=== PATIENT | female | born 1995 | race Caucasian/White ===

== ENCOUNTER 2022-03-06 02:38 | Outpatient (CLI) | payer BC, SELFPAY ==
[2022-03-06 09:50] LABS: ALT 23 U/L (14-59); AST 20 U/L (15-37); Albumin 4.3 g/dL (3.4-5.0); Alkaline Phosphatase 91 U/L (46-116); Anion Gap 10.3 mmol/L (3-11); BUN 10 mg/dL (7-18); Bilirubin, Total 0.9 mg/dL (0.2-1.0); CO2 27.7 mmol/L (21.0-32.0); CREATININE 0.6 mg/dL (0.55-1.02); Calcium 9.2 mg/dL (8.5-10.1); Calculated LDL 89 mg/dL (<100); Chloride 102 mmol/L (98-107); Cholesterol 183 mg/dL (<200); Glucose 89 mg/dL (74-106); HDL Cholesterol 77 mg/dL (40-60); Sodium 140 mmol/L (136-145); Total Protein 7.9 g/dL (6.4-8.2); Triglyceride 87 mg/dL (<150)
[2022-03-06 12:35] LABS: Abs Immature Grans 0.01 10^3/uL (0.0-0.06); Absolute Basophil Count 0.05 10^3/uL (0.0-0.2); Absolute Eosinophil Count 0.22 10^3/uL (0.0-0.7); Absolute Lymphocyte Count 1.56 10^3/uL (1.2-3.4); Absolute Monocyte Count 0.63 10^3/uL (0.1-0.8); Absolute Neutrophil Count 3.42 10^3/uL (1.2-6.7); Basophils % 0.8; Eosinophils % 3.7; HCT 38.7 % (36.0-46.0); HGB 13.3 g/dL (11.2-15.7); Immature Grans % 0.2; Lymphocytes % 26.5; MCH 33.4 pg (27.0-33.0); MCHC 34.4 % (32.0-36.0); MCV 97 fL (80-95); MPV 12.7 fL (8.0-11.0); Monocytes % 10.7; Neutrophils % 58.1; Platelet Count 225 10^3/uL (130-400); RBC 3.98 10^6/uL (3.93-5.22); RDW 11.4 % (11.7-14.6); RDW-SD 40.9 fL; WBC 5.89 10^3/uL (4.4-10.8)
[2022-03-06 19:22] LABS: Lab Add On Test DONE
[2022-03-06 20:32] LABS: Folate 16.7 ng/mL (8.6-20.0); Vitamin B12 442 pg/mL (193-986)
== END 2022-03-06 02:39 | disposition home or self-care (01) ==
LOC: LBO 02:38
PROVIDERS: PCP Student in an Organized Health Care Education/Training Program; Referring Provider Student in an Organized Health Care Education/Training Program; Visit Provider Student in an Organized Health Care Education/Training Program
DX: B99.9 Unspecified infectious disease (principal); D89.89 Other specified disorders involving the immune mechanism, not elsewhere classified; L84 Corns and callosities; M77.9 Enthesopathy, unspecified; Z13.220 Encounter for screening for lipoid disorders; E46 Unspecified protein-calorie malnutrition; R71.8 Other abnormality of red blood cells
CPT/HCPCS: 36415; 80053; 80061; 82607; 82746; 85025

== ENCOUNTER → 2022-03-17 00:30 | Outpatient (CLI) | payer BC, SELFPAY ==
--- NOTE | 2022-03-17 06:45 | DI.US_ITS ---
Exam(s) US SOFT TISSUE EXTREMITY EXAM: US SOFT TISSUE EXTREMITY CLINICAL HISTORY: evaluate nodular mass; atypical callous,rt heel pain,m79.671,l84. TECHNIQUE: Ultrasound was performed using standard protocol. COMPARISON: US US PELVIS TRANSVAGINAL from 03/07/2022 FINDINGS: Dedicated ultrasound examination of the right heel/area of concern was performed. Images reveal a relatively hypoechoic (but not typical fluid) appearing area at the area of concern w hich measures approximately 1.3 x 1.4 x 0.5 cm. No distinct ulcer crater demonstrated. Nevertheless, cannot exclude developing abscess. Other possi bility would be for in order extension of callus at this level. IMPRESSION: As above. If clinically indicated further study with MRI can be performed for added specificity. DATA REPOSITORY:
--- NOTE | 2022-03-17 08:42 | DI.RAD_ITS ---
Exam(s) XR FOOT RT COMPLETE EXAM: XR FOOT RT COMPLETE CLINICAL HISTORY: rt heel pain,l84,m79.671,pre ulcerative corn or callous, ? bony pathology. TECHNIQUE: 2D digital imaging was performed. COMPARISON: No exams were available for comparison FINDINGS: 3 views No evidence of fracture or diastasis of the Lisfranc joint. No pes planus. No osseous lesions nor e rosions. No inferior calcaneal spur. No degenerative changes. IMPRESSION: No significant focal osseous findings. DATA REPOSITORY: RADIATION DOSE DELIVERED:
== END ==
PROVIDERS: PCP Student in an Organized Health Care Education/Training Program; Visit Provider Student in an Organized Health Care Education/Training Program
DX: L84 Corns and callosities (principal); M79.671 Pain in right foot
CPT/HCPCS: 76881; 73630

== ENCOUNTER 2022-04-03 16:39 | Outpatient (REF) | payer BC, SELFPAY ==
--- NOTE | 2022-04-03 15:55 | PAPFT_PTH ---
PATIENT: Lolly Lee LOC: [facility] U#:[id number] AGE/SX: 26/F ROOM: RE04/03/[address]: Annetta Centeno MD : [id number] BED: DIS: 04/03/2022 SPEC #: [id number] RECD: 04/03/22 17:48 STATUS: DAISHA REIza #: [id number] NISHANT: 04/03/22 15:[address]: Annetta Centeno DEPT: [facility] Cytology RECD BY: Glory Camp ENTERED: 04/03/22 17:49 SP TYPE: PAPFT OTHR DR: Saskia Arita, DO Tissues: 1 - CX/ENDOCX FOR PAP SMEARS Procedures: PAP THIN PREP/[facility] Screening Comments: [id number]
== END 2022-04-03 16:40 | disposition home or self-care (01) ==
LOC: LBN 16:39
PROVIDERS: PCP Student in an Organized Health Care Education/Training Program; Visit Provider Obstetrics & Gynecology
DX: Z12.4 Encounter for screening for malignant neoplasm of cervix (principal); N76.0 Acute vaginitis
CPT/HCPCS: 88142

== ENCOUNTER 2023-02-28 07:50 | Emergency (ER) | payer BC, SELFPAY ==
[2023-02-28 07:56] VITALS: BP 126/89; PULSE 116; RESP 14; TEMP 36.5; O2SAT 100
--- NOTE | 2023-02-28 08:15 | DI.RAD_ITS ---
Exam(s) XR WRIST LT COMPLETE EXAM: XR WRIST LT COMPLETE CLINICAL HISTORY: FOOSH type injury, Pain. TECHNIQUE: 2D digital imaging was performed. Three views. COMPARISON: No exams were available for comparison FINDINGS: BONES: No acute fracture is present. No bony destructive lesion is seen. JOINTS: The carpal bones are normally aligned. SOFT TISSUE: Normal. IMPRESSION: Unremarkable radiographs of the left wrist. DATA REPOSITORY: RADIATION DOSE DELIVERED:
--- NOTE | 2023-02-28 08:22 | W.ED.GENAD ---
Discharge Plan Disposition Patient Disposition: Home Condition: Stable Discharge Details Clinical Impression: Left wrist sprain Primary Care Provider: Saskia Arita ED Provider: Debra Lara Home Meds and New Rx's Prescriptions: No Action diazepam 10 mg tablet 10 mg PO [id number] PRN Rx Instructions: Q6M with blood treatment Mirena 20 mcg/24 hours (7 yrs) 52 mg intrauterine device 1 device intrauterine ONCE Rx Instructions: as a single dose Discharge Instructions Instructions: Wrist Sprain (ED) Additional Instructions: No evidence of obvious fracture noted on the x-ray, please wear the splint as needed for comfort. Please take Tylenol or Ibuprofen with food every 4-6 hours as needed for pain and swelling. Rest ice compression elevation. It may take 3 to 6 weeks to completely heal, if you are still having significant pain after 3 weeks and rest and ice you may follow-up with orthopedics if needed. Referrals: Umer Beltrán PA [[facility]] - 2 weeks Saskia Arita DO [Primary Care Provider] - Discharge Data Discharge Date/Time-TO BE ENTERED AT DEPARTURE: 02/28/23 09:40 Medical Decision Making 27-year-old female presents to the ER with a chief complaint of left wrist pain after a FOOSH type injury last night. She presents with an Valdez wrap to her left wrist, distal CMS intact. No complaints of elbow, did not take any medications prior to arrival. I did offer analgesics she declined at this time. No significant deformity she does have distal radius and ulna tenderness pulses intact. X-ray ordered. No other associated symptoms or injuries. X-ray within normal limits, patient placed in a universal wrist splint and discharged home with follow-up with orthopedics if needed. Discussed rest ice compression elevation Tylenol and ibuprofen. This text was generated using Sienation system, please disregard any oddities of phrase or misspellings. HPI General Mode of arrival: ambulatory. Date/Time Provider Initiated Documentation: 02/28/23 08:05. Limitations to Documentation: no limitations. Information obtained by: patient, RN notes reviewed and old records reviewed. HPI Narrative: 27-year-old female presents to the ER with a chief complaint of left wrist pain after a FOOSH type injury last night. She presents with an Valdez wrap to her left wrist, distal CMS intact. No complaints of elbow, did not take any medications prior to arrival. I did offer analgesics she declined at this time. No significant deformity she does have distal radius and ulna tenderness pulses intact. X-ray ordered. No other associated symptoms or injuries. Related Data Home Medications Medication Instructions Recorded Confirmed levonorgestrel 21 mcg/24 hours (8 1 device intrauterine ONCE 02/08/22 02/28/23 yrs) 52 mg intrauterine device (Mirena) diazepam 10 mg tablet 10 mg PO [id number] PRN 02/27/22 02/28/23 Allergies Allergy/AdvReac Type Severity Reaction Status Date / Time No Known Allergies Allergy Verified 02/28/23 08:02 General Stated Complaint: Orthopedic SWETHA: 4 Review of Systems All systems reviewed & are unremarkable except as noted in HPI and below Musculoskeletal Musculoskeletal: Reports as per HPI, Denies deformity and Reports arthralgias PFSH All Active Problems (Updated 02/28/23 @ 08:58 by Debra Lara NP) Left wrist sprain (Acute) Malabsorption (Chronic) Long Hx GI, AutoImmune DDx .. Plantar wart of right foot (Acute) Pre-ulcerative corn or callous (Acute) Pain of right heel (Acute) Tobacco use disorder (Chronic) since age 19, 1/3 ppd Attempted IUD removal, unsuccessful (Acute) Elevated MCV (Acute) Scoliosis (Chronic) of LOWER back .. CHiro monthly helps. Inflammation around joint (Acute) Pelvic pain (Acute) Chronic rt pelvic pain, usually with menses, becoming more pronounced and noticeable. 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 Dasilva's) Medical History (Updated 02/28/23 @ 08:58 by Debra Lara NP) Family history of endometriosis in first degree relative History of heavy periods Family History (Updated 02/07/22 @ 15:31 by Adamaris Burton) Maternal Uncle Alcohol use disorder Maternal Grandfather Cancer melanoma Hypertension Paternal Grandfather Colon cancer Mother Hypertension Social History (Updated 02/27/22 @ 14:58 by Ivelisse Bashir RN) Smoking/Tobacco Use Status: Current every day Tobacco: How many years used: 7 Quit status: considering quitting Smoking risk assessment performed?: Yes Alcohol Intake: current Alcohol Intake frequency: 3 or more drinks per day Drug use: Occasionally Substance use type: marijuana Adopted: No Caregiver/Support person: No Foster care: No Household members: significant other Housing: house Number of Children: 0 Communication Needs: None Education Level: college Details: bachelor's degree Do you need help understanding health information?: Rarely 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 [employer] Pets and animals: Yes Pets and animals: dog(s) and bird(s) Sexually active: Yes Do you think of yourself as: bisexual Current gender identity: female What is your relationship status?: living with partner How often do you talk on the phone with friends or family?: once per week How often do you get together with friends or relatives?: once per week Panel score (0-1 are the most socially isolated patients): 1 What type of physical activity do you participate in: none Tejal/Oriental Orthodox: None Special tejal needs: No Seatbelt use: always Drive intox or ride w/intox 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 Back/Spine/Pelvis Cervical Spine: normal cervical lordosis Extrem Right upper extremity: normal to inspection Left upper extremity: normal to inspection, normal capillary refill, no joint enlargement and wrist Details: tenderness Location: of the distal radius and of the distal ulna and normal vascular exam; no deformity Right lower extremity: normal to inspection Left lower extremity: normal to inspection Course Vital Signs Vital signs: Vital Signs Temperature 36.5 C 02/28/23 07:56 Pulse 116 H 02/28/23 07:56 Respiratory Rate 114 H 02/28/23 07:56 Blood Pressure 126/89 02/28/23 07:56 Pulse Oximetry 100 02/28/23 07:56 Temperature 36.5 C 02/28/23 07:56 Temperature Source Oral 02/28/23 07:56 Pulse 116 H 02/28/23 07:56 Respiratory Rate 114 H 02/28/23 07:56 Respiratory Effort Normal, Non-Labored 02/28/23 08:14 Blood Pressure 126/89 02/28/23 07:56 Blood Pressure Position Sitting 02/28/23 07:56 Pulse Oximetry 100 02/28/23 07:56 Oxygen Delivery Method Room Air 02/28/23 07:56 Oxygen Flow Rate 0 02/28/23 07:56 Pain Level 5 02/28/23 07:56 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
[2023-02-28 09:27] VITALS: BP 122/80; PULSE 78; RESP 16; O2SAT 98
== END 2023-02-28 09:40 | disposition home or self-care (01) ==
PROVIDERS: Emergency Provider Registered Nurse Emergency; PCP Student in an Organized Health Care Education/Training Program
DX: S63.502A Unspecified sprain of left wrist, initial encounter (principal); W01.0XXA Fall on same level from slipping, tripping and stumbling without subsequent striking against object, initial encounter
CPT/HCPCS: 29125; 81025; 99283; 73110

== ENCOUNTER 2024-02-21 04:13 | Outpatient (CLI) | payer BC, SELFPAY ==
[2024-02-21 16:10] LABS: Abs Immature Grans 0.02 10^3/uL (0.0-0.06); Absolute Basophil Count 0.04 10^3/uL (0.0-0.2); Absolute Eosinophil Count 0.11 10^3/uL (0.0-0.7); Absolute Lymphocyte Count 1.72 10^3/uL (1.2-3.4); Absolute Monocyte Count 0.65 10^3/uL (0.1-0.8); Basophils % 0.5 %; Eosinophils % 1.5 %; HCT 36.8 % (36.0-46.0); HGB 12.6 g/dL (11.2-15.7); Immature Grans % 0.3 %; Lymphocytes % 23.1 %; MCH 33.1 pg (27.0-33.0); MCHC 34.2 % (32.0-36.0); MCV 97 fL (80-95); MPV 10.5 fL (8.0-11.0); Monocytes % 8.7 %; Neutrophils % 65.9 %; Platelet Count 203 10^3/uL (130-400); RBC 3.81 10^6/uL (3.93-5.22); RDW 11.5 % (11.7-14.6); RDW-SD 40.8 fL; WBC 7.44 10^3/uL (4.4-10.8)
[2024-02-21 17:32] LABS: ALT 25 U/L (14-59); AST 18 U/L (15-37); Albumin 4.2 g/dL (3.4-5.0); Alkaline Phosphatase 102 U/L (46-116); Anion Gap 10.1 mmol/L (3-11); BUN 10 mg/dL (7-18); Bilirubin, Total 0.54 mg/dL (0.2-1.0); CO2 26.9 mmol/L (21.0-32.0); CREATININE 0.9 mg/dL (0.55-1.02); Calcium 9.1 mg/dL (8.5-10.1); Calculated LDL 74 mg/dL (<100); Chloride 100 mmol/L (98-107); Cholesterol 187 mg/dL (<200); Glucose 147 mg/dL (74-106); HDL Cholesterol 79 mg/dL (40-60); Potassium 3.8 mmol/L (3.5-5.1); Sodium 137 mmol/L (136-145); TSH (W/Ref FT4) 2.01 uIU/mL (0.36-3.74); Total Protein 7.7 g/dL (6.4-8.2); Triglyceride 171 mg/dL (<150); Vitamin D 25 Total 29.6 ng/mL (30-100)
[2024-02-21 23:02] LABS: Estradiol 60 pg/mL (See Note)
[2024-02-25 23:46] LABS: Lab Add On Test DONE
[2024-02-27 02:38] LABS: Testosterone, Total 19 ng/dL (8-60)
== END 2024-02-21 04:14 | disposition home or self-care (01) ==
LOC: LBO 04:13
PROVIDERS: PCP Student in an Organized Health Care Education/Training Program; Visit Provider Student in an Organized Health Care Education/Training Program
DX: F43.11 Post-traumatic stress disorder, acute (principal); F32.A Depression, unspecified; F41.1 Generalized anxiety disorder; F43.0 Acute stress reaction; L68.0 Hirsutism; E34.9 Endocrine disorder, unspecified; K90.9 Intestinal malabsorption, unspecified; R71.8 Other abnormality of red blood cells; M77.9 Enthesopathy, unspecified; D89.89 Other specified disorders involving the immune mechanism, not elsewhere classified; Z91.89 Other specified personal risk factors, not elsewhere classified
CPT/HCPCS: 36415; 80053; 80061; 82306; 84403; 82670; 83036; 84443; 85025

== ENCOUNTER 2025-04-27 14:25 | Outpatient (CLI) | payer BC, SELFPAY ==
[2025-04-27 14:51] LABS: Kit/Specimen SENT
== END 2025-04-27 14:26 | disposition home or self-care (01) ==
LOC: LBO 14:26
PROVIDERS: PCP Student in an Organized Health Care Education/Training Program
DX: Z01.812 Encounter for preprocedural laboratory examination (principal)
CPT/HCPCS: 36415